=== PATIENT | male | born 2000 | race Caucasian/White ===

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

== ENCOUNTER 2019-10-27 12:34 | Emergency (ER) | payer OTHER ==
[2019-10-27 12:45] VITALS: BP 120/80; PULSE 100; TEMP 102.4; BMI 27.4
[2019-10-27] MEDS ORDERED: ACETAMINOPHEN 500 MG TABLET (FP) PO ONE (13:58)
--- NOTE | 2019-10-27 14:01 | PDOC ---
History of Present Illness - General Chief Complaint: Cold Symptoms Stated Complaint: Cold Symptoms Time Seen by Provider: 10/27/19 13:58 - History of Present Illness Initial Comments: 10/27/19 14:00 19-year-old male with flulike symptoms x4 days Past History - Past Medical History Allergies/Adverse Reactions: Allergies Allergy/AdvReac Type Severity Reaction Status Date / Time No Known Allergies Allergy Verified 10/27/19 12:42 Home Medications: Ambulatory Orders Lactobacillus Acidophilus [Bacid -] 1 each PO HS #30 capsule 09/13/17 COPD: No - Immunization History Immunization Up to Date: Yes - Psycho Social/Smoking Cessation Hx Smoking History: Never smoked Have you smoked in the past 12 months: No Hx Alcohol Use: No Drug/Substance Use Hx: No Review of Systems - Review of Systems Constitutional: Yes: Fever HEENTM: Yes: Nose Congestion Respiratory: Yes: Cough *Physical Exam - Vital Signs Last Vital Signs Temp Pulse Resp BP Pulse Ox 102.4 F H 100 H 16 120/80 100 10/27/19 12:43 10/27/19 12:43 10/27/19 12:43 10/27/19 12:43 10/27/19 12:43 - Physical Exam 10/27/19 14:00 GENERAL: The patient is awake, alert, and fully oriented, in no acute distress. HEAD: Normal with no signs of trauma. EYES: sclera anicteric, conjunctiva clear. ENT: Ears normal tympanic membranes normal oropharynx clear uvula midline NECK: Normal range of motion LUNGS: Breath sounds equal, clear to auscultation bilaterally. No wheezes, and no crackles. HEART: S1 and S2 without murmur, rub or gallop. ABDOMEN: Soft, nontender, normoactive bowel sounds. No guarding, no rebound. No masses. EXTREMITIES: Normal range of motion, no edema. No clubbing or cyanosis. No cords, erythema, or tenderness. NEUROLOGICAL: Cranial nerves II through XII grossly intact. PSYCH: Normal mood, normal affect. SKIN: Warm, Dry, normal turgor, no rashes or lesions noted. Medical Decision Making - Medical Decision Making 10/27/19 14:00 Out of the window of treatment for Tamiflu supportive care with Tylenol and Motrin Discharge - Discharge Information Problems reviewed: Yes Clinical Impression/Diagnosis: Influenza-like illness Condition: Stable Disposition: HOME - Admission No - Follow up/Referral Referrals: Lias Cummings MD [Primary Care Provider] - - Patient Discharge Instructions Additional Instructions: Tylenol and Motrin as directed for fevers. Return to the emergency room for worsening symptoms. Without fail follow-up with your primary care physician in 1 to 2 days for further evaluation and treatment options. Your symptoms have been going on over 4 days there is no treatment for flu at this time with antiviral medication. - Post Discharge Activity Work/Back to School Note: Back to Work
[2019-10-27] MEDS ORDERED: ACETAMINOPHEN 325 MG TABLET (FP) ONE (14:05)
== END 2019-10-27 14:06 | disposition home or self-care (01) ==
LOC: JERFT 12:34
DX: J11.1 Influenza due to unidentified influenza virus with other respiratory manifestations (principal)
CPT/HCPCS: 99282-25

== ENCOUNTER 2021-12-14 17:38 | Emergency (ER) | payer OTHER ==
[2021-12-14 17:56] VITALS: BP 111/49; PULSE 70; TEMP 98; BMI 24.2
== END 2021-12-14 18:56 | disposition home or self-care (01) ==
LOC: JER 17:38 → JERFT 17:38
DX: S93.602A Unspecified sprain of left foot, initial encounter (principal); Y99.9 Unspecified external cause status
CPT/HCPCS: 73630-TC-LT; 99283-25